=== PATIENT | female | born 1965 | race African-American/Black ===

== ENCOUNTER 2019-12-31 12:52 | Emergency (ER) | payer MEDICARE, MEDICAID ==
[~2019-12-31] VITALS: Ht 167.6 cm; Wt 74.8 kg
[2019-12-31 12:55] VITALS: BP 127/91
--- NOTE | 2019-12-31 13:01 | Emergency Room Report ---
History of Present Illness General Chief Complaint: Female Urogenital Problems Source: EMS Present Illness HPI Disclaimer: Please note that this report is being documented using DRAGON technology. This can lead to erroneous entry secondary to incorrect interpretation by the dictating instrument. HPI: 54-year-old female history of lupus and T7 paraplegia presents for evaluation of clogged suprapubic catheter. Patient states increasing sediment over the past few days causing a clogging the suprapubic catheter. This is happened in the past, approximately 4 times a year. She currently has a [address] Denies surrounding swelling, purulence, drainage, leakage, fever, chills, abdominal pain, nausea, vomiting, diarrhea or other changes in her health. Catheter changed by her urologist last month. Unfortunately due to change in insurance she is no longer able to see that urologist again. She is currently waiting to see a new urologist. PMH: Reviewed PSH: Reviewed Allergies: Hydralazine, Plaquenil Social Hx: Reviewed Allergies: Coded Allergies: HYDRALAZINE (Unverified Allergy, Unknown, 12/31/19) HYDROXYCHLOROQUINE (Unverified Allergy, Unknown, 12/31/19) COVID-19 Screening Contact w/high risk pt: No Experienced COVID-19 symptoms?: No COVID-19 Testing performed DRY CLEANER HAND: No Review of Systems All Other Systems: negative except mentioned in HPI Physical Exam Vital Signs Date Time Temp Pulse Resp B/P (MAP) Pulse Ox O2 Delivery O2 Flow Rate FiO2 12/31/19 12:48 97.3 98 14 127/91 (103) 97 Room Air General: Awake and alert, no acute distress HEENT: NC/AT. EOMI. Resp: Normal work of breathing Abdomen: Soft, nontender, nondistended. Suprapubic ostomy is clean, dry, no surrounding edema or erythema. No leakage or purulent drainage. Moderate sediment in [place] catheter tubing. Skin: Intact. No abrasions, laceration or rash over the exposed skin MSK: Normal tone and bulk. No spontaneous movement of the lower extremities. No obvious deformity. Neuro: Awake and alert. Mentating appropriately Procedures Additional Procedure Procedure Narrative Suprapubic catheter exchange Significant sediment noted in suprapubic catheter. Balloon deflated, 10 cc removed. Easily extracted 20 Spanish catheter. Ostomy was sterilized with Betadine. A new 20 Spanish catheter was placed without difficulty using sterile technique. Return of urine and flushes well. Inflated with 10 cc sterile water. Retracted. Attached to anchor and leg bag. Draining appropriately. No complication. Patient tolerated the procedure well. Medical Decision Making Diagnostic Impression: Primary Impression: Blocked suprapubic catheter ER Course This is a 54-year-old female presenting for clogged suprapubic catheter. Old catheter easily removed and tip does show significant occlusion secondary to sediment. New 20 Spanish catheter placed without difficulty. Patient tolerated CV are well and there was no complications. She is stable to follow-up. Contact information for urology provided in discharge paperwork. Instructed to return with new or worsening symptoms. She understands and agrees with this treatment plan. Will arrange for transport home. Patient has home health nurse that we will be waiting for her. Last Vital Signs Date Time Temp Pulse Resp B/P (MAP) Pulse Ox O2 Delivery O2 Flow Rate FiO2 12/31/19 12:48 97.3 98 14 127/91 (103) 97 Room Air Disposition: HOME, SELF-CARE Condition: Stable Gorge Lopez MD Dec 31, 2019 13:01
[2019-12-31 14:25] VITALS: BP 127/91
== END 2019-12-31 14:25 | disposition home or self-care (01) ==
LOC: EDBD 12:52 → EMR 13:16
DX: T83.098A Other mechanical complication of other urinary catheter, initial encounter (principal); G82.20 Paraplegia, unspecified; Z88.8 Allergy status to other drugs, medicaments and biological substances; X58.XXXA Exposure to other specified factors, initial encounter; Y92.9 Unspecified place or not applicable
CPT/HCPCS: 51702; 99284